=== PATIENT | male | born 1985 | race Caucasian/White ===

== ENCOUNTER 2021-12-13 13:16 | Emergency (ER) | payer SELFPAY | END 2021-12-13 14:16 | disposition home or self-care (01) | LOC: ERS 13:16 | DX: S60.312A Abrasion of left thumb, initial encounter (principal); W10.9XXA Fall (on) (from) unspecified stairs and steps, initial encounter | CPT/HCPCS: 99283 ==

== ENCOUNTER 2022-12-25 09:57 | Emergency (ER) | payer MEDICARE, MEDICAID ==
[2022-12-25] MEDS ORDERED: diphenhydrAMINE 25 MG CAP ONE (11:40)
[2022-12-25] MEDS ORDERED: Ziprasidone 20 MG VIAL ONE (11:41)
[2022-12-25] MEDS ORDERED: Sterile Water 10 ML ONE (11:42)
== END 2022-12-25 13:02 | disposition home or self-care (01) ==
LOC: ERS 09:57
DX: S60.512A Abrasion of left hand, initial encounter (principal); S60.511A Abrasion of right hand, initial encounter; E11.9 Type 2 diabetes mellitus without complications; W18.30XA Fall on same level, unspecified, initial encounter
CPT/HCPCS: 96372; 99283; J3486